=== PATIENT | male | born 1980 | race Caucasian/White ===

== ENCOUNTER → 2019-07-11 | Outpatient (CLI) | payer OTHER ==
[~2019-07-11] MED LIST: DIATRIZOATE MEGL/DIATRIZOA SOD 30 ML BTL PO ONE; IOPAMIDOL 370 MG/ML 200 ML INFUS..BTL INJ ONE; SODIUM CHLORIDE 0.9% 50ML 50 ML ONE
--- NOTE | 2019-07-11 17:58 | Diagnostic Imaging Report ---
EXAM: CT Abdomen and Pelvis WITH intravenous contrast INDICATION: ventral abdominal hernia COMPARISON: None. TECHNIQUE: Abdomen and pelvis were scanned utilizing a multidetector helical scanner from the lung base to the pubic symphysis after administration of IV contrast. Coronal and sagittal reformations were obtained. Routine protocol was performed. Scan was performed during portal venous phase. IV CONTRAST: 100mL of Isovue 370 ORAL CONTRAST: Gastrografin RADIATION DOSE: Total DLP: 741.0 mGy*cm Dose modulation, iterative reconstruction, and/or weight based adjustment of the mA/kV was utilized to reduce the radiation dose to as low as reasonably achievable. FINDINGS: LOWER THORAX: Normal. HEPATOBILIARY: 1.4 cm right hepatic hypodense lesion (series 2 image 26) likely represents a cyst. No other focal liver lesions. No biliary ductal dilation. Status post cholecystectomy. SPLEEN: No splenomegaly. PANCREAS: No focal masses or ductal dilatation. ADRENALS: No adrenal nodules. KIDNEYS/URETERS: No hydronephrosis, stones, or solid mass lesions. PELVIC ORGANS/BLADDER: Unremarkable. PERITONEUM / RETROPERITONEUM: No free air or fluid. LYMPH NODES: Scattered prominent gastrohepatic lymph nodes not meeting size criteria for lymphadenopathy. VESSELS: Unremarkable. GI TRACT: No abnormal bowel wall thickening. No bowel obstruction. Normal appendix. BONES AND SOFT TISSUES: Small midline ventral abdominal hernia containing mesenteric fat measures 3.3 x 3.5 cm. No acute osseous injury. No suspicious lytic or blastic lesions. The remaining soft tissues appear unremarkable. IMPRESSION: Small midline ventral abdominal hernia measures 3.3 x 3.5 cm and contains mesenteric fat. No herniated bowel. Signed by: Alin Trammell MD on 07/11/2019 5:54 PM
== END ==
LOC: CT 16:12
PROVIDERS: ATTEND Surgery
DX: K43.9 Ventral hernia without obstruction or gangrene (principal); Z98.84 Bariatric surgery status
CPT/HCPCS: 74177; Q9967

== ENCOUNTER → 2019-07-21 | Day surgery (SDC) | payer OTHER ==
[2019-07-20 11:21] LABS: BASOPHILS # (AUTO) 0.1 (0.0-0.1); BASOPHILS % 0.9 % (0.0-1.0); EOSINOPHILS # (AUTO) 0.2 (0.0-0.4); HEMATOCRIT 48.9 % (38.2-49.6); HEMOGLOBIN 16.1 g/dL (14.0-18.0); LYMPHOCYTES # (AUTO) 2.5 (1.0-3.2); LYMPHOCYTES % 31.8 % (18.0-39.1); MEAN CORPUSCULAR HEMOGLOBIN 28.8 pg (28-32); MEAN CORPUSCULAR HGB CONC 32.9 g/dL (31-35); MEAN CORPUSCULAR VOLUME 87.3 fL (81-99); MONOCYTES # (AUTO) 0.6 (0.2-0.8); NEUTROPHILS # (AUTO) 4.5 (2.1-6.9); PLATELET COUNT 329 x10e3/uL (140-360); RED CELL DISTRIBUTION WIDTH 14.2 % (11.7-14.4)
[2019-07-20 11:41] LABS: ANION GAP 11.7 mmol/L (8-16); BLOOD UREA NITROGEN 14 mg/dL (7-26); BUN/CREATININE RATIO 16 (6-25); CARBON DIOXIDE 29 mmol/L (22-29); CHLORIDE 103 mmol/L (98-107); CREATININE, SERUM 0.88 mg/dL (0.72-1.25); EST GLOMERULAR FILTRATION RATE > 60 ML/MIN (60-); GLUCOSE 91 mg/dL (74-118); POTASSIUM 3.7 mmol/L (3.5-5.1); SODIUM 140 mmol/L (136-145)
[~2019-07-21] MED LIST changes: +ACETAMINOPHEN 1000 MG/100 ML 100 ML IV ONE; +BACITRACIN 50,000 UNIT VIAL ONE; +BUPIVACAINE 0.25%/EPI 30ML SDV INJ ONE; +BUPIVACAINE LIPOSOME/PF 266 MG/20 ML IJ ONE; +CEFAZOLIN SOD 1 GM VIAL ONE; +CEFAZOLIN SOD 1 GM/NS 50ML 50 ML IV ONE; +CLONAZEPAM0.5 MG PO; +DEXAMETHASONE SOD PHOS INJ 4 MG/ML VIAL ONE; -DIATRIZOATE MEGL/DIATRIZOA SOD 30 ML BTL PO ONE; +FENTANYL CITRATE/PF 100MCG/2 ML INJ ONE; +FISH OIL 1,0001 EAC2 PO; +GLYCOPYRROLATE INJ 1MG/ 5 ML SYR ONE; +HYDROMORPHONE 1MG/1ML INJ ONE; +HYDROMORPHONE 2MG/ML 2 MG/ML ML ONE; -IOPAMIDOL 370 MG/ML 200 ML INFUS..BTL INJ ONE; +KETOROLAC TROMETHAMINE 30 MG/ML VIAL ONE; +LEVOTHYROXINE50 MCG PO; +LIDOCAINE HCL 2% LOCAL INJ 5 ML SDV VIAL INJ ONE; +MIDAZOLAM HCL 2 MG/2 ML VIAL ONE; +NEOSTIGMINE 5 MG/5ML SYR ONE; +ONDANSETRON HCL INJ 2MG/ML 2ML 2 MG/ML VIAL ONE; +PROPOFOL IV EMULSION 10 MG/ML 20 ML VIAL ONE; +PROZAC20 MG PO; +ROCURONIUM BROMIDE 10 MG/ML 5ML VIAL ONE; +SEVOFLURANE INHAL SOLN 250 ML PEN BTL ONE; -SODIUM CHLORIDE 0.9% 50ML 50 ML ONE; +VIT B12 PO
--- OUTSIDE RECORDS SUMMARY | 2019-07-21 07:00 | XMS REPORT ---
Author Author [facility] Address Unknown Phone Unavailable Care Team Providers Care Plumber Maintenance Name Role Phone LUIS DELA CRUZ Unavailable Unavailable Problems This patient has no known problems. Allergies, Adverse Reactions, Alerts This patient has no known allergies or adverse reactions. Medications This patient has no known medications. Results Test Description Test Time Test Comments Text Results Atomic Results Result Comments CT ABDOMEN/PELVIS W 2019-07-11 17:48:00 [place] [id number] Patient Name: JOCELYN LEE MR #: [id number] : 1980 Age/Sex: 39/M Req #: [id number] Adm Physician: Ordered by: LUIS DELA CRUZ MD Report #: [id number] Location: CT Room/Bed: Procedure: [id number] CT/CT ABDOMEN/PELVIS W Exam Date: 07/11/19 Exam Time: 1715 REPORT STATUS: Signed EXAM: CT Abdomen and Pelvis WITH intravenous contrast INDICATION: ventral abdominal hernia COMPARISON: None. TECHNIQUE: Abdomen and pelvis were scanned utilizing a multidetector helical scanner from the lung base to the pubic symphysis after administration of IV contrast. Coronal and sagittal reformations were obtained. Routine protocol was performed. Scan was performed during portal venous phase. IV CONTRAST: 100mL of Isovue 370 ORAL CONTRAST: Gastrografin RADIATION DOSE: Total DLP: 741.0 mGy*cm Dose modulation, iterative reconstruction, and/or weight based adjustment of the mA/kV was utilized to reduce the radiation dose to as low as reasonably achievable. FINDINGS: LOWER THORAX: Normal. HEPATOBILIARY: 1.4 cm right hepatic hypodense lesion (series 2 image 26) likely represents a cyst. No other focal liver lesions. No biliary ductal dilation. Status post cholecystectomy. SPLEEN: No splenomegaly. PANCREAS: No focal masses or ductal dilatation. ADRENALS: No adrenal nodules. KIDNEYS/URETERS: No hydronephrosis, stones, or solid mass lesions. PELVIC ORGANS/BLADDER: Unremarkable. PERITONEUM / RETROPERITONEUM: No free air or fluid. LYMPH NODES: Scattered prominent gastrohepatic lymph nodes not meeting size criteria for lymphadenopathy. VESSELS: Unremarkable. GI TRACT: No abnormal bowel wall thickening. No bowel obstruction. Normal appendix. BONES AND SOFT TISSUES: Small midline ventral abdominal hernia containing mesenteric fat measures 3.3 x 3.5 cm. No acute osseous injury. No suspicious lytic or blastic lesions. The remaining soft tissues appear unremarkable. IMPRESSION: Small midline ventral abdominal hernia measures 3.3 x 3.5 cm and contains mesenteric fat. No herniated bowel. Signed by: Kareem Trammell MD on 07/11/2019 5:54 PM Dictated By: KAREEM TRAMMELL MD 53 Transcribed By: KETTY on 07/11/191753 COPY TO: LUIS DELA CRUZ MD
--- NOTE | 2019-07-21 11:18 | Operative Report ---
DATE OF PROCEDURE: SURGEON: Malvin Xiao MD PREOPERATIVE DIAGNOSIS: Ventral hernia. POSTOPERATIVE DIAGNOSIS: Ventral hernia. PROCEDURES PERFORMED: Repair of ventral hernia with Proceed ventral patch mesh, medium size, and partial omentectomy. CHERRY CUTTER: None. ESTIMATED BLOOD LOSS: Minimal. DRAINS: None. COMPLICATIONS: None. INDICATIONS AND FINDINGS: The patient is a 39-year-old male, admitted for repair of symptomatic ventral hernia. He was status post gastric sleeve in [place] 3 years ago and laparoscopic cholecystectomy about 10 years ago, who developed a bulge in the umbilical port site after the procedure. He was complaining of pain when bending over. INTRAOPERATIVE FINDINGS: The patient had a hernia located superior to the umbilicus. He has herniation of omentum. There was no umbilical hernia. The Proceed ventral patch mesh was placed to cover the ventral hernia repair as well as the umbilicus also. The mesh was placed in the intraabdominal location. DESCRIPTION OF PROCEDURE: With the patient lying on the operative table in the supine position, after administration of general anesthesia, he was prepped and draped for repair of ventral hernia. An incision was made around the midline superior to the umbilicus and curved inferiorly. Medial and lateral leaves were then developed. Using sharp and cautery dissection, the hernia identified. It was dissected free from the surrounding tissues. The sac was opened. The omentum was found. It was excised between clamps and tied off with 2-0 silk in order to be able to reduce in the intraabdominal cavity. At this point, the defect was about 2 cm, was then repaired by placing the Proceed ventral patch, medium size in the intraabdominal cavity. This mesh covered the umbilical site too. It was lying flat against the abdominal wall without any interposition of tissue between the mesh and the abdominal wall. At this point, we then secured the mesh to the local tissues using a series of interrupted 2-0 Ethibond sutures that were placed also through the straps. At the end of the procedure, we cut the straps and then closed the fascia loosely over the mesh to provide another barrier to the exterior. Then, we irrigated the wound, infiltrated the fascia with 0.25% Marcaine with epinephrine, a total of 20 mL and then we closed the subcutaneous tissues using 2-0 chromic catgut. The umbilical skin undersurface was closed attached to the fascia with 2-0 Vicryl and then the subcuticular layer was closed using 2-0 Vicryl and the skin was closed 0.25% Marcaine with epinephrine, was also given as a block at the incision site. The patient tolerated the procedure well and was taken to recovery room in stable condition. The patient's was informed of the intraoperative findings and given postop instructions. MD REGI Lopez/FRANKLYN /[id number]
[2019-07-21 11:40] VITALS: BP 130/88
== END | disposition home or self-care (01) ==
LOC: OR 06:55
PROVIDERS: ATTEND Surgery
DX: K43.9 Ventral hernia without obstruction or gangrene (principal); Z98.84 Bariatric surgery status; Z90.49 Acquired absence of other specified parts of digestive tract; E11.9 Type 2 diabetes mellitus without complications; I10 Essential (primary) hypertension; E03.9 Hypothyroidism, unspecified; K21.9 Gastro-esophageal reflux disease without esophagitis; F41.9 Anxiety disorder, unspecified; F32.9 Major depressive disorder, single episode, unspecified; Z01.812 Encounter for preprocedural laboratory examination; Z68.35 Body mass index [BMI] 35.0-35.9, adult; Z87.891 Personal history of nicotine dependence
CPT/HCPCS: 36415; 49560; 49568; 80048; 85025; C1781; J0131; J0690 ×2; J1100; J1170 ×2; J1885; J2001; J2250; J2405; J2704; J3010; J3490